=== PATIENT | male | born 1985 | race Caucasian/White ===

== ENCOUNTER 2018-07-26 12:49 | Emergency (ER) | payer SELFPAY ==
[2018-07-26 12:51] VITALS: BP 152/95; PULSE 114; RESP 16; TEMP 36.5; O2SAT 100; BMI 29.0
--- NOTE | 2018-07-26 13:30 | RAD_ITS ---
STUDY: X-RAY CHEST REASON FOR EXAM: Male, 33 years old. Overdose TECHNIQUE: AP COMPARISON: None. FINDINGS: EKG leads project over the chest. The lungs are clear and expanded. There is no demonstrated pleural abnormality. Normal size heart. Normal mediastinum and jhoan. Normal visualized pulmonary arteries. Normal visualized aortic arch and descending thoracic aorta. Normal visualized thoracic spine. Normal visualized ribs, clavicles, and shoulders. There is no demonstrated abnormality of the visualized soft tissue structures of the upper abdomen. RAD/Chest 1 View (Portable) IMPRESSION: Nonacute portable x-ray examination of the chest. Electronically Signed: Xavier Jon MD at 13:51 EDT , Service support ,
--- NOTE | 2018-07-26 13:31 | EKG12_ITS ---
Test Reason : Blood Pressure : / mmHG Vent. Rate : 094 BPM Atrial Rate : 094 BPM P-R Int : 132 ms QRS Dur : 100 ms QT Int : 380 ms P-R-T Axes : 074 064 058 degrees QTc Int : 475 ms Normal sinus rhythm Nonspecific ST abnormality Abnormal ECG Confirmed by MEHUL BARBOUR, JENNIFER ([id number]), video editor MARTY WINCHESTER ([id number]) on 07/28/2018 11:04:32 AM Referred By: TRACE Confirmed By:JENNIFER CARVER MD
[2018-07-26 14:04] LABS: Amphetamine Urine VISTA NEGATIVE (<1000 ng/mL); Barbiturate Urine VISTA NEGATIVE (< 200 ng/mL); Benzodiazepine Urine VISTA NEGATIVE (< 200 ng/mL); Cocaine Urine VISTA NEGATIVE (< 300 ng/mL); Ecstacy Urine VISTA NEGATIVE (< 500 ng/mL); Methadone Urine VISTA NEGATIVE (< 300 ng/mL); PCP Urine VISTA NEGATIVE (< 25 ng/mL); THC Urine VISTA POSITIVE (< 50 ng/mL); Vista UDS pH Range 5
[2018-07-26 14:14] LABS: Absolute Lymphocyte Count 0.77 X10^3/ul (0.83-4.51); Absolute Neutrophil Count 7.3 X10^3/uL (2.0-7.7); Basophil# 0.02 X10^3/uL; Basophil% 0.2 % (0-1); Eosinophil# 0.03 X10^3/uL; Eosinophils% 0.3 % (0-5); Hematocrit 40.4 % (40-54); Hemoglobin 14.3 g/dl (13.0-16.5); Lymphocyte # 0.77 X10^3/ul (4.0); Lymphocyte % 8.9 % (19-41); Mean Corp Hgb Conc 35.4 g/gl (32-36); Mean Corpuscular Hgb 29.6 pg (27.0-32.0); Mean Corpuscular Volume 83.6 fL (80-94); Mean Platelet Vol. 9.7 fl (6.2-12.0); Monocyte# 0.54 X10^3/uL; Monocyte% 6.2 % (0-10); Neutrophil # 7.28 X10^3/uL (2.7-7.7); Neutrophil % 84.3 % (47-70); POSITIVE COUNT NO; POSITIVE DIFFERENTIAL NO; POSITIVE MORPHOLOGY NO; Platelet Count 247 K/mm3 (150-450); RBC Distribution Width CV 12.8 % (11.6-14.6); RBC Distribution Width SD 38.6 fl (35.1-43.9); Red Blood Count 4.83 M/mm3 (4.6-6.2); White Blood Count 8.7 K/mm3 (4.4-11.0)
[2018-07-26 14:31] LABS: Anion Gap 6 (5-15); BUN 13 mg/dL (7-18); BUN/Creat Ratio 12.7 RATIO (10-20); Calcium,Total 8.4 mg/dL (8.5-10.1); Chloride 103 mmol/L (98-107); Creatinine, Serum 1.02 mg/dL (0.70-1.30); EST Glomerular Filtration Rate 89 mL/min (>60); Est Glom Filt Rate - Afr Amer 108 mL/min (>60); Glucose 180 mg/dL (74-106); Potassium 3.5 mmol/L (3.5-5.1); Sodium Level 136 mmol/L (136-145)
--- NOTE | 2018-07-26 14:57 | ED.VISSUMM ---
- ER Visit Summary Date of Service: 07/26/18 Chief Complaint: Unresponsive History of Present Illness: The patient is a 33 M who was found unresponsive EMS was called. They administered 2 rounds of Narcan the patient woke up. He states that he did not use any opiates. He states he does smoke marijuana. He states that the marijuana did smoke a little funny. He states that he has never overdosed before family in the room last Saturday that is not true. Patient was released from long term 4 days ago. He states that last night he also passed out on his way to the kitchen he thinks that he had a seizure. He states that he is pretty sure he did not use any drugs last night. Physical Examination: Afebrile noted tachycardia at 114 otherwise vital signs are stable Gen: Well-nourished well-developed Head: Normocephalic atraumatic Eyes: Are 2 mm bilaterally ENT: TMs clear no rhinorrhea moist mucous membranes Neck: Supple no lymphadenopathy no JVD nontender CVS: Regular rate tachycardic rhythm no murmurs normal S1-S2 Respiratory: No distress clear to auscultation bilaterally chest nontender Abdomen: Soft nontender nondistended normal bowel sounds no masses Back: Nontender Extremity: Nontender no edema Skin: Normal color no rash Neuro: alert orientated ?3 CN II-XII intact normal strength sensation reflexes gait cerebellar Psych: Normal affect normal mood Test Results: EKG is a sinus rhythm at a rate of 94. CBC BMP are normal. Toxicology shows cannabinoids and opiates in the urine. Emergency Department Course and Treatment: Patient was placed on the monitor. He had no events. The patient's pupils are back to 4 mm. He is still slightly tachycardic. Patient will be referred to 180. Advised him he needs to seek detox. Impression: 1. Opiate overdose This note was generated with [employer] dictation software. It may contain incorrect words, spelling, and punctuation that were not noted in review of the chart prior to signing ED Disposition - Plan for ED Patient: Disposition: Home or Assisted Living Instructions: ED Overdose Opiate Referrals: [facility] [STAFF PHYSICIAN] - As soon as possible
--- NOTE | 2018-07-26 15:00 | ED.DCSUM_ITS ---
- ER Visit Summary Date of Service: 07/26/18 Chief Complaint: Unresponsive History of Present Illness: The patient is a 33 M who was found unresponsive EMS was called. They administered 2 rounds of Narcan the patient woke up. He states that he did not use any opiates. He states he does smoke marijuana. He states that the marijuana did smoke a little funny. He states that he has never overdosed before family in the room last Saturday that is not true. Patient was released from snf 4 days ago. He states that last night he also passed out on his way to the kitchen he thinks that he had a seizure. He states that he is pretty sure he did not use any drugs last night. Physical Examination: Afebrile noted tachycardia at 114 otherwise vital signs are stable Gen: Well-nourished well-developed Head: Normocephalic atraumatic Eyes: Are 2 mm bilaterally ENT: TMs clear no rhinorrhea moist mucous membranes Neck: Supple no lymphadenopathy no JVD nontender CVS: Regular rate tachycardic rhythm no murmurs normal S1-S2 Respiratory: No distress clear to auscultation bilaterally chest nontender Abdomen: Soft nontender nondistended normal bowel sounds no masses Back: Nontender Extremity: Nontender no edema Skin: Normal color no rash Neuro: alert orientated ?3 CN II-XII intact normal strength sensation reflexes gait cerebellar Psych: Normal affect normal mood Test Results: EKG is a sinus rhythm at a rate of 94. CBC BMP are normal. Toxicology shows cannabinoids and opiates in the urine. Emergency Department Course and Treatment: Patient was placed on the monitor. He had no events. The patient's pupils are back to 4 mm. He is still slightly tachycardic. Patient will be referred to 180. Advised him he needs to seek detox. Impression: 1. Opiate overdose This note was generated with [employer] dictation software. It may contain incorrect words, spelling, and punctuation that were not noted in review of the chart prior to signing ED Disposition - Plan for ED Patient: Disposition: Home or Assisted Living Instructions: ED Overdose Opiate Referrals: [facility] [STAFF PHYSICIAN] - As soon as possible
[2018-07-26 15:12] VITALS: BP 145/90; RESP 14; O2SAT 97
== END 2018-07-26 15:13 | disposition home or self-care (01) ==
PROVIDERS: Emergency Provider Emergency Medicine
DX: T40.601A Poisoning by unspecified narcotics, accidental (unintentional), initial encounter (principal); R40.20 Unspecified coma; Y92.9 Unspecified place or not applicable; F12.10 Cannabis abuse, uncomplicated; Z72.0 Tobacco use
CPT/HCPCS: 71045; 80048; 80307; 85025; 93005; 99285

== ENCOUNTER 2018-08-18 18:19 | Emergency (ER) | payer SELFPAY ==
[2018-08-18 18:20] VITALS: BP 138/87; PULSE 104; RESP 18; TEMP 36.9; O2SAT 98; BMI 24.4
== END 2018-08-18 21:29 | disposition left against medical advice (07) ==
LOC: ED 21:10
PROVIDERS: Emergency Provider Emergency Medicine
DX: R69 Illness, unspecified (principal); Z53.21 Procedure and treatment not carried out due to patient leaving prior to being seen by health care provider

== ENCOUNTER 2018-12-29 16:27 | Emergency (ER) | payer MEDICAID, SELFPAY ==
[2018-12-29 16:28] VITALS: BP 137/72; PULSE 122; RESP 16; TEMP 36.1; O2SAT 95; BMI 23.7
--- NOTE | 2018-12-29 17:17 | ED.DCSUM_ITS ---
- ER Visit Summary Date of Service: 12/29/18 Chief Complaint: Rash History of Present Illness: The patient is a 33 M presenting with rash. Patient states he has had this 3 times this year. He complains of itching. He states this had been ongoing for the past 2 weeks. He also complains of constipation x9 days. He denies abdominal pain or vomiting. He states he tried [id number] medications for this. Denies fever. Denies other complaints. Physical Examination: Vitals are stable. Patient is afebrile. Alert no acute distress. HEENT exam is unremarkable. Neck is supple. Lungs are clear and equal bilaterally. Heart is regular and tachycardic Abdomen is soft nontender nondistended. No guarding or rebound Extremities are unremarkable. Skin is warm and dry. Mild urticaria chest wall. Scattered maculopapular lesions extremities, no fluctuance. No focal neurologic deficit. Remainder of exam is unremarkable. Emergency Department Course and Treatment: Patient was given IV fluids, Benadryl, Solu-Medrol. Patient's family called in with concerns that he is psychotic. He apparently has been reporting that he has worms coming from his skin all over his body. He has a history of psychosis since age 14. He is supposed to take Depakote and trazodone. He was recently released from a correctional rehab facility. He states he did not like the way the Depakote made him feel and stopped taking this medication. He denies suicidal or homicidal ideation. He feels that he can care for himself at home. He admits to Adderall use, denies other drug use. CBC, chemistries unremarkable. Alcohol negative. Depakote level 7. Tox positive for methamphetamine, THC, amphetamine. KUB shows no obstruction. Patient is alert and cooperative in the ED. Discussed with social professionals who evaluated the patient. He has no suicidal or homicidal ideation. Patient states he has an appointment with his psychiatrist in 2 days. He will keep this appointment. He is given a prescription for doxycycline for folliculitis and Bactroban ointment. Advised return to the ED for worsening complaints. Disposition: Discharge home Impression: Rash, folliculitis; paranoia This note was generated with [employer] dictation software. It may contain incorrect words, spelling, and punctuation that were not noted in review of the chart prior to signing ED Disposition - Plan for ED Patient: Instructions: Folliculitis, Impetigo Prescriptions: Doxycycline 100 mg PO BID #20 cap Prescription Printed Referrals: Rafael Frederick DO [NON CLINICAL AFFILIATE] -
[2018-12-29] MEDS: MethylPREDNISolone 125 MG/2 ML Vial IV (17:36)
[2018-12-29] MEDS: DiphenhydrAMINE 50 MG/ML Syringe 25 MG IV (17:36)
[2018-12-29] MEDS: 0.9% Normal Saline 1,000 ML 999 ML IV (17:36)
--- NOTE | 2018-12-29 17:40 | RAD_ITS ---
STUDY: X-RAY - ABDOMEN/PELVIS REASON FOR EXAM: Male, 33 years old. Constipation TECHNIQUE: Frontal view of the abdomen was performed COMPARISON: None. FINDINGS: Normal visualized lung bases. There is an unremarkable bowel gas pattern. There is no demonstrated free abdominal air. The visualized liver, spleen and kidneys are grossly normal in size and morphology. There are ill-defined calcifications in the right lower pelvis projecting over the sacrum and in the left pelvis projecting over the left outer portion of the iliac joint, of unknown significance and etiology. These are potentially bone islands versus bowel content, less likely ureteral stones. Normal soft tissue structures. Normal visualized osseous structures. RAD/Abdomen Single View (Portable) IMPRESSION: 1. No intestinal obstruction. 2. Small benign-appearing calcifications as described above. Electronically Signed: Ivan Rizvi, at 18:08 EDT Tel , Service support ,
[2018-12-29 17:55] LABS: Absolute Lymphocyte Count 1.55 X10^3/uL (0.83-4.51); Absolute Neutrophil Count 3.9 X10^3/uL (2.0-7.7); Basophil# 0.06 X10^3/uL; Basophil% 0.9 % (0-1); Eosinophil# 0.14 X10^3/uL; Eosinophils% 2.1 % (0-5); Hematocrit 38.3 % (40-54); Hemoglobin 13.2 g/dL (13.0-16.5); Lymphocyte # 1.55 X10^3/ul (4.0); Lymphocyte % 23.7 % (19-41); Mean Corp Hgb Conc 34.5 g/dL (32-36); Mean Corpuscular Hgb 32.5 pg (27.0-32.0); Mean Corpuscular Volume 94.3 fL (80-94); Mean Platelet Vol. 9.7 fl (6.2-12.0); Monocyte% 13.7 % (0-10); NRBC Flagged by Analyzer 0 % (0-5); Neutrophil # 3.89 X10^3/uL (2.7-7.7); Neutrophil % 59.4 % (47-70); Platelet Count 228 K/mm3 (150-450); RBC Distribution Width SD 44.7 fl (35.1-43.9); Red Blood Count 4.06 M/mm3 (4.6-6.2); White Blood Count 6.6 K/mm3 (4.4-11.0)
[2018-12-29 18:13] LABS: Anion Gap 5 (5-15); BUN 19 mg/dL (7-18); BUN/Creat Ratio 17.1 RATIO (10-20); Calcium,Total 8.9 mg/dL (8.5-10.1); Chloride 101 mmol/L (98-107); Creatinine, Serum 1.11 mg/dL (0.70-1.30); EST Glomerular Filtration Rate 80 mL/min (>60); Est Glom Filt Rate - Afr Amer 97 mL/min (>60); Estimated Creatinine Clearance 105.97 ml/min; Glucose 77 mg/dL (74-106); Potassium 3.3 mmol/L (3.5-5.1); Sodium Level 138 mmol/L (136-145)
[2018-12-29 18:21] LABS: Valproic Acid (Depakene) Level 7 ug/mL (50-100)
[2018-12-29 18:45] VITALS: PULSE 106; RESP 18; O2SAT 98
[2018-12-29 19:10] LABS: Amphetamine Urine VISTA POSITIVE (<1000 ng/mL); Barbiturate Urine VISTA NEGATIVE (< 200 ng/mL); Benzodiazepine Urine VISTA NEGATIVE (< 200 ng/mL); Cocaine Urine VISTA NEGATIVE (< 300 ng/mL); Ecstacy Urine VISTA POSITIVE (< 500 ng/mL); Methadone Urine VISTA NEGATIVE (< 300 ng/mL); PCP Urine VISTA NEGATIVE (< 25 ng/mL); THC Urine VISTA POSITIVE (< 50 ng/mL); Vista UDS pH Range 7
--- NOTE | 2018-12-29 20:09 | CM.ED ---
Social Work Referral: Mental Health Informant: Dr. Norwood Per Dr. Norwood, patient step father, Zach contacted [facility] to communicate that patient has been paranoid about worms under patient skin and all over. Zach requesting for patient to be pink slipped due to delusional behavior. Zach requesting to remain anonymous. Met with patient in room. This clinical social work aide introduced self as well as clinical social work aide role. Patient agreeable to speaking with this clinical social work aide. Patient standing in room when this clinical social work aide entered. Patient presenting with appropriate behavior and asking when can I go home. This clinical social work aide educating patient that Dr. Norwood is continuing to review patient case. This clinical social work aide inquiring if patient is hearing voices or feeling out of the normal. Patient denies hearing voices or feeling odd. Patient stating to feel great. Patient denies any suicidal or homicidal thoughts. Patient stating to have support in the community and plan to follow up with psychiatrist in two days. Patient voicing no concerns. Active listening provided. Patient family calling back to speak with this clinical social work aide. This clinical social work aide does not have permission to give information about patient but is able to listen. Patient family stating above concerns that were mentioned to Dr. Norwood. This clinical social work aide educating patient family on pink slip criteria and process and that an individual would need to meet criteria before a pink slip could be issues. This clinical social work aide did provide patient family with crisis hotline to be utilized if patient family would have further concerns and believe that patient is at risk to self or others. Dr. Norwood currently stating that there is no reason for a pink slip. PLAN: Discharge to home with follow up with psychiatrist. TIMOTHY Blue
[2018-12-29 20:15] VITALS: PULSE 100; RESP 17; O2SAT 100
--- NOTE | 2018-12-29 20:23 | ED.DEP ---
ED Disposition - Plan for ED Patient: Instructions: Folliculitis, Impetigo Prescriptions: Doxycycline 100 mg PO BID #20 capsule Referrals: Rafael Frederick DO [NON CLINICAL AFFILIATE] -
[2018-12-29] MEDS: Mupirocin Ointment 22gm Tube 1 APPLIC TOPICAL (20:42)
[2018-12-29 20:43] VITALS: BP 149/93; PULSE 100; RESP 17; O2SAT 100
== END 2018-12-29 20:44 | disposition home or self-care (01) ==
LOC: ED 17:14
PROVIDERS: Emergency Provider Emergency Medicine
DX: L73.9 Follicular disorder, unspecified (principal); F22 Delusional disorders; Z72.0 Tobacco use
CPT/HCPCS: 74018; 80048; 80164; 80307; 80320; 85025; 96361; 96374; 96375; 99284; J7030; A4216; G0480

== ENCOUNTER 2019-02-27 05:57 | Emergency (ER) | payer MEDICAID, SELFPAY ==
[2019-02-27 06:00] VITALS: BP 146/93; PULSE 106; RESP 18; TEMP 36.6; O2SAT 100; BMI 23.2
--- NOTE | 2019-02-27 06:29 | ED.VIS.GEN ---
History of Present Illness Chief Complaint: Overdose Narrative: Patient is a 33-year-old male who presents after heroin overdose. He used about 1 hour ago. He was unresponsive. He was treated with intranasal Narcan. Currently has no complaints. Past Medical History - Allergies and Home Meds Allergies/Adverse Reactions: Allergies No Known Allergies Allergy (Verified 02/27/19 06:07) Primary Care Physician: Drew Physician,No Primary [Primary Care Provider] - Past Medical History: None Smoking Status: Current every day smoker Review of Systems All systems negative except as indicated General: Denies: Fever Cardiovascular: Denies: Chest pain Respiratory: Denies: Dyspnea Gastrointestinal: Denies: Nausea, Vomiting, Diarrhea Physical Exam Vital Signs/Narrative: Vital Signs Temp Pulse Resp BP Pulse Ox 02/27/19 06:00 97.9 F 106 H 18 146/93 H 100 General: Well nourished Head: Normocephalic Eyes: EOMI ENT: Moist mucous membranes Neck: Supple Cardiovascular: Regular rhythm, Tachycardia Respiratory: No distress, CTA bilaterally Abdomen: Soft, Nontender Skin: Normal color Neurological: Alert Psychological: Normal affect Diagnostic/Tx/Re-eval - Medical Decision Making Patient will be observed here. As long as he maintains a normal level of consciousness without any recurrent symptoms he will be discharged after about an hour of observation. ED Disposition - Plan for ED Patient: Disposition: Home or Assisted Living Diagnosis: Heroin overdose Instructions: OVERDOSE, Opiate Referrals: Care Physician,No Primary [Primary Care Provider] -
[2019-02-27 07:05] VITALS: BP 119/66; PULSE 87; RESP 16; O2SAT 98
== END 2019-02-27 07:06 | disposition home or self-care (01) ==
LOC: ED 06:52
PROVIDERS: Emergency Provider Emergency Medicine
DX: T40.1X1A Poisoning by heroin, accidental (unintentional), initial encounter (principal); Y92.9 Unspecified place or not applicable; F17.200 Nicotine dependence, unspecified, uncomplicated
CPT/HCPCS: 99284; J7030

== ENCOUNTER 2021-05-09 11:36 | Emergency (ER) | payer SELFPAY ==
[2021-05-09 11:37] VITALS: BP 115/57; PULSE 84; RESP 16; TEMP 36.3; O2SAT 100; BMI 22.4
--- NOTE | 2021-05-09 11:45 | ED.RN ---
per pt he wants to go to [facility] to detox. pt is denying SI at this time. Pt states I only say what I have to so that I can come here and get released
--- NOTE | 2021-05-09 11:55 | ED.RN ---
when asked if pt wanted to go through the detox program, pt states no.
--- NOTE | 2021-05-09 12:19 | ED.RN ---
social work stated to pt that he could leave.
--- NOTE | 2021-05-09 13:21 | CASEMGMT ---
Social Work Consult: Substance Abuse/Mental Health Referral source: Triage Nurse. Per Triage nurse [facility] and released with a pink slip. Triage nurse reports that patient states to have only said that patient wanted to kill self to get out of [facility]. Chief Complaint: Don't feel good. Marital/Social History: Single Living Situation: I have a place to stay. No transportation. Support/Resources: No supports. No community supports. History: None Education/Employment History: Unemployed. Completed the 11th grade. Denies any issues with comprehension or understanding. Mental Health Treatment/History: Denies. Does reports substance abuse. Triggers/Stressors: just having a hard time right now. Coping Skills: I have none. Abuse Issues: Denies Substance Abuse Hx: Reports use of Heroin and to have last used Saturday. Patient denies any other substance abuse/use. Risk to Self/Others: Patient denies suicidal thoughts, plans or intents or history of. Patient states I just want to feel good. Patient denies homicidal thoughts, plans, intents or history of. Patient denies self harming behavior and reports desire to live. Patient reports intent to get treatment for substance abuse. Mental Status Exam: A&Ox3 Appearance/General Behavior: Disheveled. Mood/Affect: Depressed. Communication Pattern: Responds to questions. Thought Process: Appropriate. Denies hallucinations, delusions or paranoia. Judgement: Fair Assessment: Met with patient in room. Introduced self and social media strategist role. Patient agreeable to speak with this social media strategist. Patient states to intent to get to [facility] for substance abuse treatment. This social media strategist offered to assist patient with placement. Patient states I don't need help, my mom is waiting for me in the parking lot. Patient just wants to know if patient is able to leave. This social media strategist reports that patient does not current meet qualifications for inpatient psychiatric placement but would recommend for patient to see a doctor prior to leaving emergency room. Patient then gets up out of bed and leaves the ER. Medical team updated. Medical doctor agreeing with this social work assessment that the pink slip has been waived. Ivania DELUNA, CURTIS
== END 2021-05-09 12:24 | disposition left against medical advice (07) ==
LOC: ED 12:24
DX: Z53.21 Procedure and treatment not carried out due to patient leaving prior to being seen by health care provider (principal)
CPT/HCPCS: 99282

== ENCOUNTER 2022-05-04 17:16 | Emergency (ER) | payer MEDICAID, SELFPAY ==
[2022-05-04 17:17] VITALS: BP 148/102; PULSE 120; RESP 17; TEMP 36.6; O2SAT 100; BMI 20.9
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
[2022-05-04 18:40] LABS: Bedside Glucose 117 mg/dL (74-106)
[2022-05-04] MEDS: Cephalexin 250 MG Capsule 500 MG PO (18:40)
[2022-05-04] MEDS: Smz/Tmp Ds Tablet 1 TABLET PO (18:40)
--- NOTE | 2022-05-04 20:07 | ED.RN ---
PER DR. RING ATTEMPTED TO CALL PT TO INFORM HIM ATB'S WERE SENT TO [facility]. NO ANSWER.
== END 2022-05-04 20:27 | disposition left against medical advice (07) ==
PROVIDERS: Emergency Provider Emergency Medicine; Visit Provider Emergency Medicine
DX: L03.115 Cellulitis of right lower limb (principal); R73.9 Hyperglycemia, unspecified; F17.200 Nicotine dependence, unspecified, uncomplicated
CPT/HCPCS: 82962; 99283

== ENCOUNTER 2023-12-26 08:23 | Emergency (ER) | payer MEDICAID, SELFPAY ==
[2023-12-26 08:23] VITALS: BP 149/101; PULSE 97; RESP 14; TEMP 36.6; O2SAT 94; BMI 22.8
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
[2023-12-26] MEDS: 0.9% Normal Saline (1000mL) 1,000 ML 999 ML IV (09:50)
[2023-12-26 09:57] LABS: Basophil# 0.05 X10^3/uL; Basophil% 0.5 % (0-1); Eosinophil# 0.02 X10^3/uL; Eosinophils% 0.2 % (0-5); Hematocrit 42.3 % (40-54); Hemoglobin 14.7 g/dL (13.0-16.5); Lymphocyte % 10.1 % (19-41); Mean Corp Hgb Conc 34.8 g/dL (32-36); Mean Corpuscular Hgb 29.2 pg (27.0-32.0); Mean Corpuscular Volume 83.9 fL (80-94); Mean Platelet Vol. 9.5 fl (6.2-12.0); Monocyte# 0.81 X10^3/uL; Monocyte% 8.2 % (0-10); NRBC Flagged by Analyzer 0 % (0-5); Neutrophil # 7.98 X10^3/uL (2.7-7.7); Neutrophil % 80.8 % (47-70); Platelet Count 275 K/mm3 (150-450); RBC Distribution Width CV 12.2 % (11.6-14.6); RBC Distribution Width SD 36.7 fl (35.1-43.9); Red Blood Count 5.04 M/mm3 (4.6-6.2); White Blood Count 9.9 K/mm3 (4.4-11.0)
[2023-12-26 10:14] LABS: ALB/GLOB Ratio 1.1 RATIO (0.9-2.4); AST(SGOT) 29 U/L (15-37); Alanine Aminotransfer ALT/SGPT 31 U/L (16-61); Albumin, Serum 4.6 g/dL (3.2-5.0); Alkaline Phosphatase 91 U/L (45-117); Anion Gap 6 (5-15); BUN 30 mg/dL (7-18); BUN/Creat Ratio 24.6 RATIO (10-20); Calcium,Total 9.6 mg/dL (8.5-10.1); Chloride 96 mmol/L (98-107); Creatinine, Serum 1.22 mg/dL (0.70-1.30); EST Glomerular Filtration Rate 70 mL/min (>60); Est Glom Filt Rate - Afr Amer 85 mL/min (>60); Estimated Creatinine Clearance 90.49 ml/min; Globulin 4.1 g/dL (2.2-4.2); Glucose 114 mg/dL (74-106); Potassium 3.3 mmol/L (3.5-5.1); Protein, Total 8.7 g/dL (6.4-8.2); Sodium Level 134 mmol/L (136-145)
[2023-12-26 10:23] VITALS: PULSE 89; RESP 16; O2SAT 98
[2023-12-26 10:31] LABS: Lactic Acid 0.8 mmol/L (0.4-1.9)
[2023-12-26 11:30] LABS: Bacteria 0 SEEN /hpf (None Seen); Mucous, Urine 0 SEEN /hpf (<or=2+); Red Blood Cells-Urine 0 SEEN /hpf (0-5); Squamous Epithelial Cells - UA 0 SEEN /hpf (0-5)
[2023-12-26 11:39] LABS: Color, Urine Yellow (Yellow); Glucose, Dipstick Normal (Normal); Leukocyte Esterase-Dipstick 25 /ul (Negative); Nitrite-Dipstick Negative (Negative); Occult Blood-Urine Negative /ul (Negative); Protein-Dipstick 30 mg/dl (Negative); Specific Gravity, Urine 1.025 (1.002-1.030); Urine Bilirubin Dipstick Negative (Negative); Urine Clarity Sl. Cloudy (Clear); Urine Urobilinogen Normal (Normal)
[2023-12-26 11:43] LABS: Ketone-Dipstick 150 mg/dl (Negative)
[2023-12-26 11:46] LABS: White Blood Cells 0-5 SEEN /hpf (0-5)
[2023-12-26 11:47] LABS: Fine Granular Cast- Urine 0-5 SEEN /lpf (0-5)
--- NOTE | 2023-12-26 12:06 | EDS_ITS ---
HPI History of Present Illness Chief Complaint: Dizziness Narrative Narrative: Patient is a 38-year-old male with a past medical history of methamphetamine abuse heroin abuse has been clean for 1 year is now on buprenorphine who presented to the emerged part with chief complaint of head wound. Patient states that he noted that this has been going on for quite some time. He states that he was just recently released from [facility]. He states that he first thought that this was an ingrown hair and popped this. He states that he had been showering and noted that every single time he showered it was bleeding and he has a hair loss noted from the area. He states that he would hold pressure and the wound would stop bleeding. He states that he cannot see this. He states that he was seen by a doctor yesterday for this. He denies any antibiotics currently. [facility] Medical History Methamphetamine abuse Heroin abuse Home Medications ?Medication ?Instructions ?Recorded ?Last Taken ?Type cephalexin 500 mg capsule 500 mg PO Q6 #40 caps 05/04/22 Unknown Rx sulfamethoxazole 800 1 tab PO BID #20 tabs 05/04/22 Unknown Rx mg-trimethoprim 160 mg tablet (Bactrim DS) doxycycline hyclate 100 mg capsule 100 mg PO BID 7 days #14 caps 12/26/23 Unknown Rx ondansetron 4 mg disintegrating 4 mg PO Q6H PRN nausea and 12/26/23 Unknown Rx tablet vomiting #20 tabs Allergy/AdvReac Type Severity Reaction Status Date / Time No Known Allergies Allergy Verified 05/04/22 17:16 Social History Smoking Status: Heavy Smoker (>10/day) ROS ROS ED ROS Narrative Constitutional: States that he has pain in the back of his head from this wound denies any fevers states that he has had some chills Eyes: Denies change in vision double vision blurry vision Cardiovascular: Denies chest pain or palpitations Respiratory: Denies coughing wheezing shortness of breath Abdomen: Denies abdominal pain nausea vomit diarrhea : Denies any urinary symptoms Neurological: Denies numbness, discontinuing Musculoskeletal: Denies any back pain Skin: Denies any rashes complains of wound to the back of the head + EXAM Physical Exam Narrative Exam Narrative: General: Patient sitting in bed rest comfortably did not appear to be in acute distress Head: Atraumatic, normocephalic Eyes: PERRL bilaterally, EOMI bilateral, no conjunctival injection noted Neck: Soft, supple, trachea midline Cardiovascular: Regular rate and rhythm no murmurs gallops rubs noted Respiratory: Clear to auscultation bilaterally Abdomen: No tenderness palpation Musculoskeletal: No tenderness palpation midline of the cervical, thoracolumbar spine Extremities: +5/5 strength noted in the bilateral upper and lower extremities, no pedal edema on exam, radial pulses +2/4 in the bilateral per extremities Neurological: Patient following commands knew that he was at [facility] years 2023 Skin: Patient has a wound noted to the posterior aspect of his head no purulent drainage discharge currently noted. It does measure 4-1/2 cm x 3 cm in nature. Const Vital Signs: 12/26/23 08:23 12/26/23 10:23 Temperature 98 F Temperature Source Temporal Pulse Rate 97 89 Respiratory Rate 14 16 Blood Pressure 149/101 H Blood Pressure Mean 117 Pulse Ox 94 98 Oxygen Delivery Method Room Air MDM MDM MDM Narrative Medical decision making narrative: Patient is a 38-year-old male who presented to the emergency department chief complaint of wound to the back of the head that has been going on for a significant amount of time now. Patient will have workup performed here on the differential diagnose includes but not limited to infected wound, abscess, cellulitis. Once workup is obtained reviewed he will be reevaluated. Patient CBC reviewed showed no evidence of leukocytosis white blood count normal at 9.9, hemoglobin was 14.7, platelet count normal at 275. Patient sodium was noted be 134, potassium 3.3, creatinine was 1.22 which was normal. Patient's urinalysis did not reveal any evidence infection did have some ketones noted. Patient CT head and brain without contrast showed no acute intracranial hemorrhage or findings. Wound culture was ordered At this point time did discuss the results with the patient he would like to go home he will be placed on doxycycline and given follow-up with plastic surgery as well as a family doctor. He is encouraged return with worsening drainage, fevers while on antibiotics or any other concerns. He is agreeable this plan all question concerns answered at bedside he is discharged home in stable condition. Lab Data Labs: Laboratory Results - last 24 hr 12/26/23 12/26/23 09:40 11:25 WBC 9.9 RBC 5.04 Hgb 14.7 Hct 42.3 MCV 83.9 MCH 29.2 MCHC 34.8 RDW Std Deviation 36.7 RDW Coeff of Dom 12.2 Plt Count 275 MPV 9.5 Immature Gran % (Auto) 0.200 Neut % (Auto) 80.8 H Lymph % (Auto) 10.1 L Freestone % (Auto) 8.2 Eos % (Auto) 0.2 Baso % (Auto) 0.5 Absolute Neuts (auto) 8.0 H Absolute Lymphs (auto) 1.00 Nucleated RBC % 0 Sodium 134 L Potassium 3.3 L Chloride 96 L Carbon Dioxide 32.0 Anion Gap 6 BUN 30 H Creatinine 1.22 Estim Creat Clear Calc 90.49 Est GFR (MDRD) Af Amer 85 Est GFR (MDRD) Non-Af 70 BUN/Creatinine Ratio 24.6 H Glucose 114 H Lactic Acid 0.8 Calcium 9.6 Total Bilirubin 0.90 AST 29 ALT 31 Alkaline Phosphatase 91 Total Protein 8.7 H Albumin 4.6 Globulin 4.1 Albumin/Globulin Ratio 1.1 Urine Color Yellow Urine Clarity Sl. Cloudy Urine pH 5.0 Ur Specific [place] 1.025 Urine Protein 30 H Urine Glucose (UA) Normal Urine Ketones 150 A* Urine Occult Blood Negative Urine Nitrite Negative Urine Bilirubin Negative Urine Urobilinogen Normal Ur Leukocyte Esterase 25 H Urine RBC 0 SEEN Urine WBC 0-5 SEEN Ur Squamous Epith Cells 0 SEEN Urine Bacteria 0 SEEN Fine Granular Casts 0-5 SEEN Urine Mucus 0 SEEN Radiography Diagnostic Testing: Clinical Impression(s) from Imaging Studies Brain CT 12/26/23 09:30 IMPRESSION: Normal unenhanced CT scan of the brain. Electronically Signed: Conrado Carias MD at 10:16 EDT , Discharge Plan Triage Chief Complaint: Dizziness ED Provider: Kiko Flood Dx/Rx/DC Orders Clinical Impression: Open scalp wound Prescriptions: New doxycycline hyclate 100 mg capsule 100 mg PO BID 7 Days Qty: 14 0RF ondansetron 4 mg tablet,disintegrating 4 mg PO Q6H PRN (Reason: nausea and vomiting) Qty: 20 0RF No Action cephalexin [cephalexin] 500 mg capsule 500 mg PO Q6 Qty: 40 0RF sulfamethoxazole-trimethoprim [Bactrim DS] 800-160 mg tablet 1 tab PO BID Qty: 20 0RF Primary Care Provider: Care Physician,No Primary Referrals: Care Physician,No Primary [Primary Care Provider] - Print Language: Amharic
[2023-12-26 12:21] VITALS: BP 137/88; PULSE 82; RESP 18; TEMP 36.2; O2SAT 99
== END 2023-12-26 12:22 | disposition home or self-care (01) ==
PROVIDERS: Emergency Provider Emergency Medicine; Visit Provider Emergency Medicine
DX: S01.00XA Unspecified open wound of scalp, initial encounter (principal); F17.200 Nicotine dependence, unspecified, uncomplicated; X58.XXXA Exposure to other specified factors, initial encounter
CPT/HCPCS: 70450; 80053; 81001; 83605; 85025; 87040; 87070; 87077; 87186; 87205; 96360; 99283; J7030; A4216

== ENCOUNTER 2024-03-15 19:45 | Emergency (ER) | payer MEDICAID, SELFPAY ==
[2024-03-15 19:45] VITALS: BP 158/109; PULSE 95; RESP 16; TEMP 37.1; O2SAT 100; BMI 21.9
--- NOTE | 2024-03-15 19:54 | CT_ITS ---
EXAM: CT TEMPORAL BONES WITH INTRAVENOUS CONTRAST CLINICAL INDICATION: pain swelling, rule out orbital cellulitis swollen TECHNIQUE: Routine CT protocol was performed of the internal auditory canals and temporal bones with intravenous contrast. 2-D reformats were performed by the technologist. This CT exam was performed using one or more of the following dose reduction techniques: automated exposure control, adjustment of the mA and/or kV according to patient size, and/or use of iterative reconstruction technique. CONTRAST: IV 75mL Isovue-370 RADIATION DOSE: CTDIvol = 29.38 mGy, DLP = 1124.30 mGy-cm COMPARISON: No relevant prior studies available. FINDINGS: RIGHT OSSICLES AND MIDDLE EAR: Unremarkable. Well aerated. Ossicles and scutum intact. RIGHT COCHLEA: Unremarkable. RIGHT VESTIBULE: Unremarkable. RIGHT SEMICIRCULAR CANALS: Unremarkable. RIGHT INTERNAL AUDITORY CANAL: Unremarkable. No osseous erosion or widening of the canal. RIGHT EXTERNAL AUDITORY CANAL: Clear. RIGHT MASTOID AIR CELLS: Unremarkable. Well aerated. LEFT OSSICLES AND MIDDLE EAR: Unremarkable. Well aerated. Ossicles and scutum intact. LEFT COCHLEA: Unremarkable. LEFT VESTIBULE: Unremarkable. LEFT SEMICIRCULAR CANALS: Unremarkable. LEFT INTERNAL AUDITORY CANAL: Unremarkable. No osseous erosion or widening of the canal. LEFT EXTERNAL AUDITORY CANAL: Clear. LEFT MASTOID AIR CELLS: Unremarkable. Well aerated. BONES/JOINTS: Degenerative changes of the mandibular condyles. No discrete lytic or blastic abnormalities. SOFT TISSUES: Left periorbital soft tissue swelling suggesting preseptal cellulitis. No drainable abscess. BRAIN AND EXTRA-AXIAL SPACES: Unremarkable as visualized. Cerebello-pontine angles are unremarkable. CT/Orb Sella Post Fossa Ear W/CON IMPRESSION: 1. Left periorbital soft tissue swelling suggesting preseptal cellulitis. No drainable abscess. 2. Degenerative changes of the mandibular condyles. Electronically Signed: Pacheco Tomlin MD at 20:45 EST Reading Location ID and State: [facility] / [place] , Service support ,
--- NOTE | 2024-03-15 19:55 | EX.ED.VIS.EY ---
HPI History of Present Illness Chief Complaint: Eye Problem Narrative Narrative: 38-year-old male past medical history of depression and anxiety presents with pain, swelling, and redness around his left eye. He states 2 days ago there is a small lesion on the left side of his face near his eye/underneath his eye that he thought was a pimple. He popped it. Over the last 2 days, has had swelling around his left eye with redness. He denies any drainage from his eye or loss of vision. No fevers or chills, no nausea or vomiting. He does have occasional, very mild pain with movement of his left eye at times. [facility] Medical History Methamphetamine abuse Heroin abuse Home Medications ?Medication ?Instructions ?Recorded ?Last Taken ?Type bupropion HCl 200 mg tablet,12 hr 400 mg PO DAILY 03/15/24 Unknown History sustained-release (Wellbutrin SR) cephalexin 500 mg capsule 500 mg PO Q6 #40 CAPSULES 03/15/24 Unknown Rx quetiapine 200 mg tablet (Seroquel) 200 mg PO DAILY 03/15/24 Unknown History Allergy/AdvReac Type Severity Reaction Status Date / Time No Known Allergies Allergy Verified 03/15/24 19:47 Social History Smoking Status: Heavy Smoker (>10/day) ROS ROS ED ROS Narrative Constitutional: No fever, no chills. HEENT: No sore throat. No neck pain. No loss of vision. No rhinorrhea. Positive pain, swelling, and redness around left eye. Swelling of eyelid. No discharge from eye. Cardiovascular: No chest pain. No palpitations. No pedal edema. Respiratory: No cough, no shortness of breath. Abdominal: No abdominal pain. No nausea. No vomiting. Genitourinary: No dysuria. No hematuria. Musculoskeletal: No myalgias. No arthralgias. Neurologic: No headaches. No dizziness. No lightheadedness. Skin: No rash. 2 days ago had small pimple on her left cheek that he popped. Now with redness around left eye. EXAM Physical Exam Narrative Exam Narrative: Afebrile. Vital signs noted. Nontoxic-appearing. Cardiovascular examination reveals a regular rate and rhythm. Lungs are clear to auscultation bilaterally. Abdomen is soft nontender with normal active bowel sounds. Neurological examination is nonfocal and nonlateralizing. Of significance is the HEENT examination which shows periorbital erythema with swelling of the upper and lower lids. PERRL, EOMI. No extra ocular muscle entrapment noted. No exquisite pain with movement of left eye. There is a small lesion/break in the skin on the left upper cheek more towards the eye laterally that looks like it has been excoriated. No fluctuance. Const Vital Signs: 03/15/24 19:45 Temperature 98.8 F Temperature Source Oral Pulse Rate 95 Respiratory Rate 16 Blood Pressure 158/109 H Blood Pressure Mean 125 Pulse Ox 100 Oxygen Delivery Method Room Air MDM MDM MDM Narrative Medical decision making narrative: Differential diagnosis includes but not limited to periorbital/preseptal cellulitis versus orbital cellulitis. He complained of a small amount of pain on occasion, but there is no extraocular muscle entrapment, and he does not exhibit a large amount of pain with movement of his left eye. I reviewed the patient's laboratory work and he does not have an elevated white count. BMP is grossly unremarkable. I reviewed the radiology report of the CT of the orbits and there is preseptal cellulitis but no drainable abscess, no orbital cellulitis. At this point in time, he was given his first dose of cephalexin here in the emergency department and a prescription written to take 4 times a day for the next 10 days. He was referred to primary care. He was told to return with increased pain and swelling of his left eye, inability to move his left eye or increased pain with movement of his left eye, or any new or worsening symptoms. Patient is motivated for discharge. I do not feel he requires observation at this time and he merits outpatient antibiotic trial. He can take [id number] analgesics as needed. Return instructions reviewed. Disposition is discharged home in stable condition. History & Record Review Discussion w/independent historian: Patient Discharge Plan Triage Chief Complaint: Eye Problem ED Provider: Antony Nino Dx/Rx/DC Orders Clinical Impression: Preseptal cellulitis of left eye, Pain and swelling of eyelid of left eye Instructions: ED Periorbital Cellulitis Prescriptions: New cephalexin 500 mg capsule 500 mg PO Q6 Qty: 40 0RF No Action bupropion HCl [Wellbutrin SR] 200 mg tablet sustained-release 12 hr 400 mg PO DAILY quetiapine [Seroquel] 200 mg tablet 200 mg PO DAILY Primary Care Provider: Care Physician,No Primary Referrals: Francois Marie MD [Med Staff - Active Staff] - 3-5 Days Care Physician,No Primary [Primary Care Provider] - Activity Restrictions/Additional Instructions: Return with fever, increased pain and swelling, inability to move your left eye, new or worsening symptoms. Take all of the antibiotics as directed. Print Language: Bulgarian Disposition Disposition: Home, Self Care
[2024-03-15 20:07] LABS: Absolute Lymphocyte Count 1.04 X10^3/uL (0.83-4.51); Absolute Neutrophil Count 6.3 X10^3/uL (2.0-7.7); Basophil# 0.05 X10^3/uL; Basophil% 0.6 % (0-1); Eosinophil# 0.19 X10^3/uL; Eosinophils% 2.3 % (0-5); Hematocrit 36.7 % (40-54); Hemoglobin 12.1 g/dL (13.0-16.5); Lymphocyte # 1.04 X10^3/ul (0.83-4.51); Lymphocyte % 12.4 % (19-41); Mean Corpuscular Hgb 28.5 pg (27.0-32.0); Mean Corpuscular Volume 86.6 fL (80-94); Mean Platelet Vol. 9.6 fl (6.2-12.0); Monocyte# 0.82 X10^3/uL; Monocyte% 9.8 % (0-10); NRBC Flagged by Analyzer 0 % (0-5); Neutrophil # 6.28 X10^3/uL (2.7-7.7); Neutrophil % 74.5 % (47-70); Platelet Count 316 K/mm3 (150-450); RBC Distribution Width CV 12.6 % (11.6-14.6); RBC Distribution Width SD 40.2 fl (35.1-43.9); Red Blood Count 4.24 M/mm3 (4.6-6.2); White Blood Count 8.4 K/mm3 (4.4-11.0)
[2024-03-15 20:26] LABS: Anion Gap 6 (5-15); BUN 14 mg/dL (7-18); BUN/Creat Ratio 18.5 RATIO (10-20); Calcium,Total 9.1 mg/dL (8.5-10.1); Chloride 105 mmol/L (98-107); Creatinine, Serum 0.76 mg/dL (0.70-1.30); EST Glomerular Filtration Rate 122 mL/min (>60); Est Glom Filt Rate - Afr Amer 147 mL/min (>60); Estimated Creatinine Clearance 139.45 ml/min; Glucose 105 mg/dL (74-106); Potassium 3.5 mmol/L (3.5-5.1); Sodium Level 139 mmol/L (136-145)
[2024-03-15] MEDS: Cephalexin 250 MG Capsule 500 MG PO (21:01)
== END 2024-03-15 21:03 | disposition home or self-care (01) ==
PROVIDERS: Emergency Provider Emergency Medicine; Visit Provider Emergency Medicine
DX: L03.213 Periorbital cellulitis (principal); F17.200 Nicotine dependence, unspecified, uncomplicated; Z79.899 Other long term (current) drug therapy
CPT/HCPCS: 70481; 80048; 85025; 99284; Q9967; A4216

== ENCOUNTER → 2024-07-31 | Outpatient (CLI) | payer MEDICAID, SELFPAY ==
[2024-07-31 12:09] LABS: Absolute Lymphocyte Count 0.93 X10^3/uL (0.83-4.51); Basophil# 0.08 X10^3/uL; Basophil% 1.4 % (0-1); Eosinophil# 0.16 X10^3/uL; Eosinophils% 2.8 % (0-5); Hematocrit 43.8 % (40-54); Hemoglobin 14.8 g/dL (13.0-16.5); Lymphocyte # 0.93 X10^3/ul (0.83-4.51); Lymphocyte % 16.3 % (19-41); Mean Corp Hgb Conc 33.8 g/dL (32-36); Mean Corpuscular Hgb 29.7 pg (27.0-32.0); Mean Platelet Vol. 9.5 fl (6.2-12.0); Monocyte# 0.52 X10^3/uL; Monocyte% 9.1 % (0-10); NRBC Flagged by Analyzer 0 % (0-5); Neutrophil # 3.99 X10^3/uL (2.7-7.7); Neutrophil % 70.2 % (47-70); Platelet Count 268 K/mm3 (150-450); RBC Distribution Width CV 13.5 % (11.6-14.6); RBC Distribution Width SD 43.7 fl (35.1-43.9); Red Blood Count 4.98 M/mm3 (4.6-6.2); White Blood Count 5.7 K/mm3 (4.4-11.0)
[2024-07-31 12:41] LABS: Hemoglobin A1c 5.1 % (<=5.6)
[2024-07-31 12:46] LABS: ALB/GLOB Ratio 1.3 RATIO (0.9-2.4); AST(SGOT) 39 U/L (<=37); Alanine Aminotransfer ALT/SGPT 56 U/L (<=46); Albumin, Serum 4.6 g/dL (3.5-5.0); Alkaline Phosphatase 90 U/L (40-129); Anion Gap 12 (5-15); BUN 16 mg/dL (4-19); BUN/Creat Ratio 14.8 RATIO (10-20); Calcium,Total 9.5 mg/dL (7.6-11.0); Carbon Dioxide 23.1 mmol/L (21.0-32.0); Chloride 104 mmol/L (98-108); Cholesterol 185 mg/dL (<=200); EST Glomerular Filtration Rate 87 (>60); Globulin 3.4 g/dL (2.2-4.2); Glucose 102 mg/dL (70-99); High Density Lipoprotein 44 mg/dL; Low Density Lipoprotein Calc. 131 mg/dL; Potassium 4.7 mmol/L (3.3-5.1); Sodium Level 139 mmol/L (133-145); Triglycerides 48 mg/dL; Very Low Density Lipoprotein 10 mg/dL (5-40); cholesterol:hdl ratio screen 4.17
== END | disposition home or self-care (01) ==
LOC: VSLAB 11:20
DX: R53.83 Other fatigue (principal); Z13.1 Encounter for screening for diabetes mellitus; Z13.220 Encounter for screening for lipoid disorders
CPT/HCPCS: 36415; 80053; 80061; 83036; 84443; 85025